=== PATIENT | female | born 1935 | race Caucasian/White ===

== ENCOUNTER 2018-09-04 20:56 | Emergency (ER) | payer MEDICARE, OTHER ==
--- NOTE | 2018-09-04 21:24 | EDM.PDOC ---
ED HPI GENERAL MEDICAL PROBLEM - General Chief Complaint: Gastrointestinal Problem Stated Complaint: VOMITING Time Seen by Provider: 09/04/18 21:24 - History of Present Illness INITIAL COMMENTS - FREE TEXT/NARRATIVE: 82-year-old female presents emergency room with nausea and vomiting. She has no associated pain with this no diarrhea. The nausea and vomiting started yesterday. She has not been able to keep anything down. She is starting to get week. She's not had any associated chest pain chest pressure breathing difficulties or shortness of breath. She has not had any burning or frequency with urination. - Related Data Allergies Allergy/AdvReac Type Severity Reaction Status Date / Time No Known Allergies Allergy Verified 04/25/17 12:34 Home Meds: Home Meds Alendronate Sodium [Fosamax] 70 mg PO MO 09/04/18 [History] Bimatoprost [LUMIGAN 0.01% Ophth Soln] 1 drop TOP BEDTIME 09/04/18 [History] Levothyroxine 125 mcg PO DAILY 09/04/18 [History] Losartan [Cozaar] 100 mg PO BEDTIME 09/04/18 [History] Montelukast [Singulair] 10 mg PO DAILY 09/04/18 [History] Multivitamin [Multivitamins] 1 cap PO DAILY 09/04/18 [History] Omeprazole 20 mg PO DAILY 09/04/18 [History] prednisoLONE Sod Phosphate [Prednisolone Sodium Phosphate] 1 drop TOP TID [History] Ondansetron [Zofran ODT] 4 mg PO Q6H PRN #10 tab.dis 09/05/18 [Rx] Potassium Chloride [Klor-Con 10] 10 meq PO Q8H #9 tab.er 09/05/18 [Rx] Past Medical History HEENT History: Reports: Glaucoma, Other (See Below) Other HEENT History: bilateral glaucoma surgery Cardiovascular History: Reports: Heart Failure, Hypertension Gastrointestinal History: Reports: Chronic Constipation, GERD, Hemorrhoids Genitourinary History: Reports: Renal Calculus Other Genitourinary History: lithotripsy Musculoskeletal History: Reports: Back Pain, Chronic - Past Surgical History GI Surgical History: Reports: Appendectomy, Cholecystectomy Female Surgical History: Reports: Hysterectomy, Lithotripsy/ESWL, Tubal Ligation Other Female Surgeries/Procedures: partial Musculoskeletal Surgical History: Reports: Knee Replacement Social & Family History - Tobacco Use Smoking Status *Q: Never Smoker - Caffeine Use Caffeine Use: Reports: Coffee - Recreational Drug Use Recreational Drug Use: No ED ROS GENERAL - Review of Systems Review Of Systems: See Below Constitutional: Reports: No Symptoms. Denies: Fever, Chills HEENT: Reports: No Symptoms Respiratory: Reports: No Symptoms Cardiovascular: Reports: No Symptoms GI/Abdominal: Reports: Decreased Appetite, Nausea, Vomiting. Denies: Abdominal Pain, Black Stool, Bloody Stool, Constipation, Diarrhea, Difficulty Swallowing, Distension, Hematemesis, Hematochezia, Melena, Mucous in Stool : Reports: No Symptoms Neurological: Reports: No Symptoms Psychiatric: Reports: No Symptoms ED EXAM, GI/ABD - Physical Exam Exam: See Below Exam Limited By: No Limitations General Appearance: Alert, No Apparent Distress Head: Atraumatic, Normocephalic Neck: Normal Inspection, Supple, Non-Tender, Full Range of Motion Respiratory/Chest: No Respiratory Distress, Lungs Clear, Normal Breath Sounds Cardiovascular: Regular Rate, Rhythm, No Edema, No Murmur GI/Abdominal Exam: Normal Bowel Sounds, Soft, Non-Tender. No: Guarding, Rigid, Rebound Back Exam: Normal Inspection, Full Range of Motion. No: CVA Tenderness (L), CVA Tenderness (R), Vertebral Tenderness Extremities: Normal Inspection. No: No Pedal Edema Neurological: Alert, Oriented, Normal Cognition EKG INTERPRETATION EKG Date: 09/04/18 Rhythm: NSR [place]: LAD-Left [place] Deviation P-Wave: Present QRS: Other (LVH) ST-T: Normal QT: Normal Comparison: NA - No Prior EKG EKG Interpretation Comments: LVH otherwise normal Course - Vital Signs Last Recorded V/S: Last Vital Signs Temp 37.2 C 09/04/18 21:10 Pulse 81 09/05/18 01:26 Resp 18 09/05/18 01:26 BP 157/80 H 09/05/18 01:26 Pulse Ox 97 09/05/18 01:26 - Orders/Labs/Meds Orders: Active Orders 24 hr Category Date Time Status EKG Documentation Completion [RC] STAT Care 09/04/18 22:01 Active Lactated Ringers [Ringers, Lactated] 1,000 ml Med 09/04/18 22:15 Active IV ASDIRECTED Medication Orders Lactated Ringer's (Ringers, Lactated) 1,000 mls @ 125 mls/hr IV ASDIRECTED REGINE Last Admin: 09/04/18 23:13 Dose: 125 mls/hr Labs: Laboratory Tests 09/04/18 09/04/18 09/04/18 Range/Units 22:25 22:25 23:35 WBC 7.16 (3.98-10.04) K/mm3 RBC 4.82 (3.98-5.22) M/mm3 Hgb 14.0 (11.2-15.7) gm/L Hct 41.8 (34.1-44.9) % MCV 86.7 (79.4-94.8) fl MCH 29.0 (25.6-32.2) pg MCHC 33.5 (32.2-35.5) g/dl RDW Std Deviation 49.1 H (36.4-46.3) fL Plt Count 311 (182-369) K/mm3 MPV 8.6 L (9.4-12.3) fl Neutrophils % (Manual) 75 H (40-60) % Band Neutrophils % 0 (0-10) % Lymphocytes % (Manual) 14 L (20-40) % Atypical Lymphs % 0 % Monocytes % (Manual) 11 H (2-10) % Eosinophils % (Manual) 0 L (0.7-5.8) % Basophils % (Manual) 0 L (0.1-1.2) Platelet Estimate Adequate Plt Morphology Comment Normal Anisocytosis 1+ slight Microcytosis 1+ slight Macrocytosis 1+ slight RBC Morph Comment Abnormal Sodium 140 (136-145) mEq/L Potassium 3.3 L (3.5-5.1) mEq/L Chloride 107 (98-107) mEq/L Carbon Dioxide 22 (21-32) mEq/L Anion Gap 14.3 (5-15) BUN 11 (7-18) mg/dL Creatinine 0.7 (0.55-1.02) mg/dL Est Cr Clr Drug Dosing TNP Estimated GFR (MDRD) > 60 (>60) mL/min BUN/Creatinine Ratio 15.7 (14-18) Glucose 128 H (83-115) mg/dL Calcium 9.2 (8.5-10.1) mg/dL Total Bilirubin 0.7 (0.2-1.0) mg/dL AST 14 L (15-37) U/L ALT 16 (14-59) U/L Alkaline Phosphatase 86 (46-116) U/L Troponin I < 0.017 (0.00-0.056) ng/mL Total Protein 6.8 (6.4-8.2) g/dl Albumin 3.1 L (3.4-5.0) g/dl Globulin 3.7 gm/dL Albumin/Globulin Ratio 0.8 L (1-2) Lipase 56 L (73-393) U/L Urine Color Yellow (Yellow) Urine Appearance Slt cloudy H (Clear) Urine pH 7.0 (5.0-8.0) Ur Specific [place] 1.015 (1.005-1.030) Urine Protein Negative (Negative) Urine Glucose (UA) Negative (Negative) Urine Ketones 2+ H (Negative) Urine Occult Blood Trace-lysed H (Negative) Urine Nitrite Negative (Negative) Urine Bilirubin Negative (Negative) Urine Urobilinogen 1.0 (0.2-1.0) Ur Leukocyte Esterase Negative (Negative) Urine RBC 0-5 (0-5) /hpf Urine WBC 0-5 (0-5) /hpf Ur Epithelial Cells 0-5 (0-5) /hpf Urine Bacteria Few (FEW) /hpf Hyaline Casts 0-5 (0-5) /lpf Urine Mucus Few (FEW) /hpf Meds: Medications Generic Name Dose Route Start Last Admin Trade Name Freq PRN Reason Stop Dose Admin Lactated Ringer's 1,000 mls @ 125 mls/hr 09/04/18 22:15 09/04/18 23:13 Ringers, Lactated IV 125 mls/hr ASDIRECTED REGINE Administration Discontinued Medications Generic Name Dose Route Start Last Admin Trade Name Freq PRN Reason Stop Dose Admin Lactated Ringer's 500 mls @ 999 mls/hr 09/04/18 22:01 09/04/18 23:12 Ringers, Lactated IV 09/04/18 22:31 Infused .BOLUS ONE Infusion Metoclopramide HCl 5 mg 09/05/18 00:42 09/05/18 00:50 Reglan IVPUSH 09/05/18 00:43 5 mg ONETIME ONE Administration Ondansetron HCl 4 mg 09/04/18 22:01 09/04/18 22:39 Zofran IVPUSH 09/04/18 22:02 4 mg ONETIME ONE Administration Ondansetron HCl 4 mg 09/04/18 23:22 09/04/18 23:43 Zofran IVPUSH 09/04/18 23:23 4 mg ONETIME ONE Administration - Re-Assessments/Exams Free Text/Narrative Re-Assessment/Exam: 09/05/18 01:34 Patient's labs were done she has mild hypokalemia troponin negative. Had some difficulty controlling her nausea she had 2 doses of Zofran followed by a dose of Reglan patient thinks she is ready to go home at this point we'll give her some supplemental potassium we will try oral Zofran because of the risks of continued use of Reglan. Departure - Departure Time of Disposition: 01:35 Disposition: Home, Self-Care 01 Clinical Impression: Gastroenteritis - Discharge Information Prescriptions: Ondansetron [Zofran ODT] 4 mg PO Q6H PRN #10 tab.dis PRN Reason: Nausea/Vomiting Potassium Chloride [Klor-Con 10] 10 meq PO Q8H #9 tab.er Referrals: Damien Roldan MD [Primary Care Provider] - Forms: ED Department Discharge Additional Instructions: Return to the emergency room with any questions problems worsening symptoms. Uses Zofran as needed for nausea and vomiting. Clear liquid diet for 24 hours then slowly advance as tolerated. Follow-up with your regular doctor on Friday if needed - My Orders Last 24 Hours: My Active Orders 09/04/18 22:01 EKG Documentation Completion [RC] STAT 09/04/18 22:15 Lactated Ringers [Ringers, Lactated] 1,000 ml IV ASDIRECTED - Assessment/Plan Last 24 Hours: My Active Orders 09/04/18 22:01 EKG Documentation Completion [RC] STAT 09/04/18 22:15 Lactated Ringers [Ringers, Lactated] 1,000 ml IV ASDIRECTED
[2018-09-04] MEDS ORDERED: Lactated Ringers 500 ML IV ONE (22:01)
[2018-09-04] MEDS ORDERED: Ondansetron 4 MG/2 ML SDV IVPUSH ONE ×2 (22:01→23:22)
[2018-09-04] MEDS ORDERED: Lactated Ringers 1,000 ML IV SCH (22:15)
[2018-09-05] MEDS ORDERED: Metoclopramide 10 MG/2 ML SDV IVPUSH ONE (00:42)
[2018-09-05] MEDS ORDERED: Ondansetron 4 MG Tab.DIS PO ONE (01:36)
== END 2018-09-05 01:55 | disposition home or self-care (01) ==
LOC: JD.ED 20:56
DX: K52.9 Noninfective gastroenteritis and colitis, unspecified (principal)
CPT/HCPCS: 36415; 80053; 81001; 83690; 84484; 85007; 85027; 93005; 96361; 96374; 96375; 96376; 99284; A9270; J2405; J2765; J7120; 93010

== ENCOUNTER 2020-08-18 10:37 | Emergency (ER) | payer MEDICARE, OTHER ==
[2020-08-18] MEDS ORDERED: Dextrose 5%-0.9% NaCl 1,000 ML IV SCH (12:00)
[2020-08-18] MEDS ORDERED: Acetaminophen 325 MG Tab PO STA (12:03)
--- NOTE | 2020-08-18 12:07 | EDM.PDOC ---
ED HPI GENERAL MEDICAL PROBLEM - General Chief Complaint: General Stated Complaint: DENYS AMBULANCE Time Seen by Provider: 08/18/20 11:58 Source of Information: Reports: Patient History Limitations: Reports: No Limitations - History of Present Illness INITIAL COMMENTS - FREE TEXT/NARRATIVE: 84-year-old female presents to the ED for evaluation of falls x2 within the last 12 hours. Both times she ended up on the floor in the bathroom. She states she fell gently the first time but the last time which was earlier this morning she fell quite hard but landed on her abdomen and did not feel that she hurt herself. At no time did she had her head or lose consciousness. She is complaining of no significant pain in her abdomen pelvis hips or knees. She states that she feels generally weak. She has lost her appetite over the last 2 to 3 days. She states that she has a productive cough which seems to be getting a little bit worse. Denies any genitourinary complaints. She is not aware of any chills but she is febrile on exam. She has no had no nausea or vomiting. Onset: Gradual Onset Date: 08/15/20 Duration: Day(s):, Getting Worse Location: Reports: Generalized (Analyzed weakness with falls x2 in the last 12 hours.) Quality: Reports: Other Severity: Moderate (Denies any pain at this time.) Improves with: Reports: None Worsens with: Reports: Other Context: Reports: Trauma (All at home x2 in the last 12 hours both times in the bathroom.). Denies: Activity, Exercise (She feels worse i.e. dizzy or lightheaded with standing up.), Lifting, Sick Contact Associated Symptoms: Reports: Loss of Appetite, Malaise, Shortness of Breath, Weakness. 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) (Timo her regular medicines.) Lower Back Pain Score (Numeric/FACES): 7 - Related Data Allergies Allergy/AdvReac Type Severity Reaction Status Date / Time No Known Allergies Allergy Verified 08/18/20 10:45 Home Meds: Home Meds Alendronate Sodium [Fosamax] 70 mg PO MO 09/04/18 [History] Bimatoprost [LUMIGAN 0.01% Ophth Soln] 1 drop TOP BEDTIME 09/04/18 [History] Levothyroxine 125 mcg PO DAILY 09/04/18 [History] Losartan [Cozaar] 100 mg PO BEDTIME 09/04/18 [History] Montelukast [Singulair] 10 mg PO DAILY 09/04/18 [History] Multivitamin [Multivitamins] 1 cap PO DAILY 09/04/18 [History] Omeprazole 20 mg PO DAILY 09/04/18 [History] prednisoLONE sodium phosphate [Prednisolone Sodium Phosphate] 1 drop TOP TID 09/04/18 [History] Ondansetron [Zofran ODT] 4 mg PO Q6H PRN #10 tab.dis 09/05/18 [Rx] Potassium Chloride [Klor-Con 10] 10 meq PO Q8H #9 tab.er 09/05/18 [Rx] Past Medical History HEENT History: Reports: Glaucoma, Other (See Below) Other HEENT History: bilateral glaucoma surgery Cardiovascular History: Reports: Heart Failure, Hypertension Gastrointestinal History: Reports: Chronic Constipation, GERD, Hemorrhoids Genitourinary History: Reports: Renal Calculus Other Genitourinary History: lithotripsy Musculoskeletal History: Reports: Back Pain, Chronic Endocrine/Metabolic History: Reports: Hypothyroidism, Osteopenia, Osteoporosis - Past Surgical History GI Surgical History: Reports: Appendectomy, Cholecystectomy Female Surgical History: Reports: Hysterectomy, Lithotripsy/ESWL, Tubal Ligation Other Female Surgeries/Procedures: partial Musculoskeletal Surgical History: Reports: Knee Replacement Social & Family History - Tobacco Use Smoking Status *Q: Never Smoker Second Hand Smoke Exposure: No - Caffeine Use Caffeine Use: Reports: Coffee - Recreational Drug Use Recreational Drug Use: No - Living Situation & Occupation Living situation: Reports: Occupation: Retired ED ROS GENERAL - Review of Systems Review Of Systems: See Below Constitutional: Reports: Fever, Malaise, Weakness, Fatigue, Decreased Appetite. Denies: Chills, Weight Loss HEENT: Reports: Glasses, Other (Has known glaucoma) Respiratory: Reports: Shortness of Breath, Cough, Sputum. Denies: Wheezing, Pleuritic Chest Pain, Hemoptysis (Yellowish sputum) Cardiovascular: Reports: Blood Pressure Problem, Dyspnea on Exertion (Always has a little edema in both lower extremities.), Edema, Lightheadedness. Denies: Chest Pain, Claudication, Orthopnea Endocrine: Reports: Fatigue GI/Abdominal: Reports: Constipation, Decreased Appetite. Denies: Abdominal Pain, Distension, Flatus, Hematemesis, Hematochezia, Melena, Nausea : Reports: Frequency (Both urge and stress components), Incontinence Musculoskeletal: Reports: Joint Pain (Knees hips back neck and shoulders at times) Skin: Reports: Other (He has psoriasis both elbows both knees and over the dorsal aspects of her feet. Also some on her sacrum.) Neurological: Reports: Dizziness, Difficulty Walking, Weakness, Other (All at home x2.). Denies: Confusion, Headache, Numbness, Syncope, Tingling, Tremors (Weakness), Trouble Speaking Psychiatric: Reports: No Symptoms Hematologic/Lymphatic: Reports: No Symptoms Immunologic: Reports: No Symptoms ED EXAM, GENERAL - Physical Exam Exam: See Below Exam Limited By: No Limitations General Appearance: Alert, WD/WN, No Apparent Distress, Other (He is alert oriented answers all questions quite appropriately. Temperature was 37.4 and she feels slightly warmer than this. Heart rate is 70 and sinus respiratory is 24 with O2 sats of 99% on room air BP 155/72.) Eye Exam: Bilateral Eye: Normal Inspection, PERRL Throat/Mouth: Other (Lips and tongue are very dry and coated.). No: Normal Teeth Head: Atraumatic, Normocephalic, Other Neck: Normal Inspection (No outward signs of any head or facial trauma), Limited Range of Motion. No: Carotid Bruit (Crepitus on lateral rotation with near full range of motion.), Lymphadenopathy (L), Lymphadenopathy (R) Respiratory/Chest: Normal Breath Sounds, Respiratory Distress, Decreased Breath Sounds (Kidney on exam decreased breath sounds to both lung bases.). No: Rales, Rhonchi, Wheezing Cardiovascular: Regular Rate, Rhythm, No Gallop, No JVD, No Murmur, No Rub. No: Normal Peripheral Pulses, No Edema Peripheral Pulses: 1+: Posterior Tibial (L), Posterior Tibial (R), Dorsalis Pe dis (L), Dorsalis Pedis (R), 2+: Carotid (L), Carotid (R) GI/Abdominal: Normal Bowel Sounds, Soft, Non-Tender, No Organomegaly, No Mass, Pelvis Stable, Other (She has a large scar right lower quadrant of the abdomen suggesting a combination cholecystectomy appendectomy.) Back Exam: Normal Inspection, Decreased Range of Motion, Other (Mild kyphosis thoracic spine. No overt signs of any thoracic or lumbar trauma on exam no abrasions or contusions.). No: CVA Tenderness (L), CVA Tenderness (R) Extremities: Pedal Edema (1+ pedal edema both lower extremities), Other Neurological: Alert (Stasis dermatitis mild both extremities. Psoriasis over the dorsal aspect of both feet worse on the right as compared to the left.), Oriented, CN II-XII Intact, Normal Cognition Psychiatric: Normal Affect, Normal Mood Skin Exam: Warm, Dry, Intact, Normal Color, Other (Rices elbows knees feet sacrum) EKG INTERPRETATION EKG Date: 08/18/20 Time: 12:04 Rhythm: NSR Rate (Beats/Min): 67 ([place] unifocal PVCs.) [place]: LAD-Left [place] Deviation (Mild left axis deviation of -6 degrees) P-Wave: Present QRS: Other (Early R wave transition suggesting right ventricular hypertrophy pattern versus septal hypertrophy.) ST-T: Normal QT: Prolonged (Mildly prolonged) EKG Interpretation Comments: Abnormal ECG Course - Vital Signs Last Recorded V/S: Last Vital Signs Temp 37.2 C 08/18/20 14:01 Pulse 78 08/18/20 10:45 Resp 24 H 08/18/20 10:45 BP 155/72 H 08/18/20 10:45 Pulse Ox 99 08/18/20 10:45 - Orders/Labs/Meds Orders: Active Orders 24 hr Category Date Time Status EKG Documentation Completion [RC] STAT Care 08/18/20 11:57 Active Orthostatic Vital Signs [RC] ASDIRECTED Care 08/18/20 11:59 Active CULTURE BLOOD [BC] Stat Lab 08/18/20 12:45 Received CULTURE BLOOD [BC] Stat Lab 08/18/20 13:50 Received Dextrose 5%-0.9% NaCl [Dextrose 5%-Normal Saline] 1,000 Med 08/18/20 12:00 Active ml IV ASDIRECTED Blood Culture x2 Reflex Set [OM.PC] Stat Oth 08/18/20 11:58 Ordered Medication Orders Dextrose/Sodium Chloride (Dextrose 5%-Normal Saline) 1,000 mls @ 150 mls/hr IV ASDIRECTED REGINE Last Admin: 08/18/20 14:02 Dose: 150 mls/hr Documented by: MARQUES Labs: Laboratory Tests 08/18/20 08/18/20 08/18/20 Range/Units 12:45 12:45 12:45 WBC 4.22 (3.98-10.04) K/mm3 RBC 4.91 (3.98-5.22) M/mm3 Hgb 14.2 (11.2-15.7) gm/dl Hct 44.9 (34.1-44.9) % MCV 91.4 D (79.4-94.8) fl MCH 28.9 (25.6-32.2) pg MCHC 31.6 L (32.2-35.5) g/dl RDW Std Deviation 48.8 H (36.4-46.3) fL Plt Count 238 (182-369) K/mm3 MPV 9.2 L (9.4-12.3) fl Neut % (Auto) 54.6 (34.0-71.1) % Lymph % (Auto) 24.4 (19.3-51.7) % [place] % (Auto) 20.1 H (4.7-12.5) % Eos % (Auto) 0.2 L (0.7-5.8) Baso % (Auto) 0.5 (0.1-1.2) % Neut # (Auto) 2.30 (1.56-6.13) K/mm3 Lymph # (Auto) 1.03 L (1.18-3.74) K/mm3 [place] # (Auto) 0.85 H (0.24-0.36) K/mm3 Eos # (Auto) 0.01 L (0.04-0.36) K/mm3 Baso # (Auto) 0.02 (0.01-0.08) K/mm3 Manual Slide Review Normal smear ESR (0-20) mm/hr PT 11.5 (9.7-11.7) SECONDS INR 1.08 APTT 29 (22-31) SECONDS Sodium 141 (136-145) mEq/L Potassium 4.0 (3.5-5.1) mEq/L Chloride 102 (98-107) mEq/L Carbon Dioxide 31 (21-32) mEq/L Anion Gap 12.0 (5-15) BUN 16 (7-18) mg/dL Creatinine 0.9 (0.55-1.02) mg/dL Est Cr Clr Drug Dosing 40.18 mL/min Estimated GFR (MDRD) 60 (>60) mL/min BUN/Creatinine Ratio 17.8 (14-18) Glucose 108 (83-115) mg/dL Calcium 9.2 (8.5-10.1) mg/dL Magnesium 2.1 (1.8-2.4) mg/dl Total Bilirubin 0.5 (0.2-1.0) mg/dL AST 24 (15-37) U/L ALT 28 (14-59) U/L Alkaline Phosphatase 81 (46-116) U/L CK-MB (CK-2) 0.8 (0-3.6) ng/ml Troponin I 0.029 (0.00-0.056) ng/mL C-Reactive Protein 3.3 H* (<1.0) mg/dL NT-Pro-B Natriuret Pep (0-450) pg/mL Total Protein 7.2 (6.4-8.2) g/dl Albumin 3.3 L (3.4-5.0) g/dl Globulin 3.9 gm/dL Albumin/Globulin Ratio 0.9 L (1-2) Urine Color (Yellow) Urine Appearance (Clear) Urine pH (5.0-8.0) Ur Specific [place] (1.005-1.030) Urine Protein (Negative) Urine Glucose (UA) (Negative) Urine Ketones (Negative) Urine Occult Blood (Negative) Urine Nitrite (Negative) Urine Bilirubin (Negative) Urine Urobilinogen (0.2-1.0) Ur Leukocyte Esterase (Negative) Urine RBC (0-5) /hpf Urine WBC (0-5) /hpf Ur Squamous Epith Cells (0-5) /hpf Urine Bacteria (FEW) /hpf Urine Mucus (FEW) /hpf 08/18/20 08/18/20 08/18/20 Range/Units 12:45 13:50 16:00 WBC (3.98-10.04) K/mm3 RBC (3.98-5.22) M/mm3 Hgb (11.2-15.7) gm/dl Hct (34.1-44.9) % MCV (79.4-94.8) fl MCH (25.6-32.2) pg MCHC (32.2-35.5) g/dl RDW Std Deviation (36.4-46.3) fL Plt Count (182-369) K/mm3 MPV (9.4-12.3) fl Neut % (Auto) (34.0-71.1) % Lymph % (Auto) (19.3-51.7) % [place] % (Auto) (4.7-12.5) % Eos % (Auto) (0.7-5.8) Baso % (Auto) (0.1-1.2) % Neut # (Auto) (1.56-6.13) K/mm3 Lymph # (Auto) (1.18-3.74) K/mm3 [place] # (Auto) (0.24-0.36) K/mm3 Eos # (Auto) (0.04-0.36) K/mm3 Baso # (Auto) (0.01-0.08) K/mm3 Manual Slide Review ESR 21 H (0-20) mm/hr PT (9.7-11.7) SECONDS INR APTT (22-31) SECONDS Sodium (136-145) mEq/L Potassium (3.5-5.1) mEq/L Chloride (98-107) mEq/L Carbon Dioxide (21-32) mEq/L Anion Gap (5-15) BUN (7-18) mg/dL Creatinine (0.55-1.02) mg/dL Est Cr Clr Drug Dosing mL/min Estimated GFR (MDRD) (>60) mL/min BUN/Creatinine Ratio (14-18) Glucose (83-115) mg/dL Calcium (8.5-10.1) mg/dL Magnesium (1.8-2.4) mg/dl Total Bilirubin (0.2-1.0) mg/dL AST (15-37) U/L ALT (14-59) U/L Alkaline Phosphatase (46-116) U/L CK-MB (CK-2) (0-3.6) ng/ml Troponin I (0.00-0.056) ng/mL C-Reactive Protein (<1.0) mg/dL NT-Pro-B Natriuret Pep 548 H (0-450) pg/mL Total Protein (6.4-8.2) g/dl Albumin (3.4-5.0) g/dl Globulin gm/dL Albumin/Globulin Ratio (1-2) Urine Color Yellow (Yellow) Urine Appearance Slt cloudy H (Clear) Urine pH 6.5 (5.0-8.0) Ur Specific [place] 1.025 (1.005-1.030) Urine Protein Trace H (Negative) Urine Glucose (UA) Negative (Negative) Urine Ketones Trace H (Negative) Urine Occult Blood Negative (Negative) Urine Nitrite Negative (Negative) Urine Bilirubin Negative (Negative) Urine Urobilinogen 2.0 H (0.2-1.0) Ur Leukocyte Esterase Negative (Negative) Urine RBC 0-5 (0-5) /hpf Urine WBC 0-5 (0-5) /hpf Ur Squamous Epith Cells 5-10 H (0-5) /hpf Urine Bacteria Few (FEW) /hpf Urine Mucus Moderate H (FEW) /hpf Meds: Medications Generic Name Dose Route Start Last Admin Trade Name Freq PRN Reason Stop Dose Admin Dextrose/Sodium Chloride 1,000 mls @ 150 mls/hr 08/18/20 12:00 08/18/20 14:02 Dextrose 5%-Normal Saline IV 150 mls/hr ASDIRECTED REGINE Administration Discontinued Medications Generic Name Dose Route Start Last Admin Trade Name Freq PRN Reason Stop Dose Admin Acetaminophen 650 mg 08/18/20 12:03 08/18/20 14:01 Tylenol PO 08/18/20 12:04 650 mg NOW STA Administration - Radiology Interpretation Free Text/Narrative:: 84-year-old female presents to the ED due to fall x2 in the last 12 hours in her bathroom at home. First time she went down to the floor gently fell more aggressively this morning onto her abdomen without any apparent injuries. On examination she has a low-grade fever. She reports coughing for the last 3 days and bringing up some yellow sputum no blood. She denies any genitourinary complaints. She has had decreased appetite and decreased fluid intake the last 2 to 3 days as well which likely contributed to orthostasis and fall. No apparent injuries are evident from the fall. Plan septic work-up will be carried out. COVID-19 screen will not be carried out since her O2 sats are 99% on room air. - Re-Assessments/Exams Free Text/Narrative Re-Assessment/Exam: 08/18/20 13:21 Lab reports due to collapsing veins they were only able to obtain obtain of blood for 1 blood culture and they could not obtain enough blood for a lactic acid or sed rate. They indicate that her veins seem to blow up easily. 08/18/20 13:59 Chemistry is back showing a sodium of 141 potassium 4.0. Chloride 102 with a bicarb of 31. Anion gap is 12.0. BUN is 16 with a creatinine of 0.9. Estimated GFR is 60. BUN creatinine ratio is 17.8 with a glucose of 108. Calcium is 9.2 magnesium is 2.1. Liver function is normal CK- MB fraction 0.8 troponin I is 0.029 C-reactive protein slightly elevated at 3.3 BNP mildly elevated at 548. Total protein is 7.2 with an albumin fraction of 3.3. Next x-ray has not yet been done. 08/18/20 14:09 White count is 4.22 with 55% neutrophils on the auto differential. Hemoglobin is 14.2 with hematocrit of 44.9. MCV is 91.4. Platelet count 238,000. Audible chest x-ray reveals heart size and mediastinum to be within normal limits for portable technique. Lungs show no acute parenchymal changes. Bony structures are grossly intact. 08/18/20 15:06 Awaiting a urinalysis and the patient has not yet provided 1. Apparently the nurse has catheterized urine sent the sample over without a value recorded yet. Sed rate was 21. 08/18/20 16:23 Urinalysis is slightly cloudy in appearance. Trace of proteinuria trace of ketones and 2.0 urobilinogen. Leukocyte esterase is negative and there are no pus cells or red cells in the urine. 08/18/20 16:28 patient is no longer febrile and she denies any significant cough. Sats are 94 to 95% on room air. Discharged to home. She has a walker to aid her balance and gait at all times. She will see how things go over the weekend and follow-up on Friday if needed. To have a viral upper respiratory tract infection. COVID screening was not carried out today as she had sats of 99% on initial evaluation. Departure - Departure Time of Disposition: 16:28 Disposition: Home, Self-Care 01 Condition: Fair Clinical Impression: Generalized weakness, Viral syndrome, Fall as cause of accidental injury at home as place of occurrence - Discharge Information *PRESCRIPTION DRUG MONITORING PROGRAM REVIEWED*: Not Applicable *COPY OF PRESCRIPTION DRUG MONITORING REPORT IN PATIENT NEHA: Not Applicable Referrals: Damien Roldan MD [Primary Care Provider] - Forms: ED Department Discharge Additional Instructions: Evaluation in the emergency room today in regards to generalized weakness causing her to fall or your legs give out on you over the last day or so. Associated with an upper respiratory tract infection with cough which appears to be viral in etiology. Chest x-ray is negative for pneumonia lab tests were all negative for any signs of related illness. Urinalysis which took forever to come back is negative for infection as well. I would suggest taking Tylenol 650 mg every 6 hours if needed for fever relief over the weekend and see how things go. If still feeling tough or getting worse in the next 48 hours then you should be returned to the ED or follow-up with your personal care physician on Friday. Diet as tolerated. Continue all current medications as previously prescribed Sepsis Event Note (ED) - Evaluation Sepsis Screening Result: Possible Sepsis Risk - Focused Exam Vital Signs: Vital Signs Temp Temp Pulse Resp BP Pulse Ox 08/18/20 14:01 37.2 C 08/18/20 10:45 37.4 C 78 24 H 155/72 H 99 - My Orders Last 24 Hours: My Active Orders 08/18/20 11:57 EKG Documentation Completion [RC] STAT 08/18/20 11:58 Blood Culture x2 Reflex Set [OM.PC] Stat 08/18/20 11:59 Orthostatic Vital Signs [RC] ASDIRECTED 08/18/20 12:00 Dextrose 5%-0.9% NaCl [Dextrose 5%-Normal Saline] 1,000 ml IV ASDIRECTED 08/18/20 12:45 CULTURE BLOOD [BC] Stat 08/18/20 13:50 CULTURE BLOOD [BC] Stat - Assessment/Plan Last 24 Hours: My Active Orders 08/18/20 11:57 EKG Documentation Completion [RC] STAT 08/18/20 11:58 Blood Culture x2 Reflex Set [OM.PC] Stat 08/18/20 11:59 Orthostatic Vital Signs [RC] ASDIRECTED 08/18/20 12:00 Dextrose 5%-0.9% NaCl [Dextrose 5%-Normal Saline] 1,000 ml IV ASDIRECTED 08/18/20 12:45 CULTURE BLOOD [BC] Stat 08/18/20 13:50 CULTURE BLOOD [BC] Stat
--- NOTE | 2020-08-18 14:45 | PCM.SN.2 ---
- Free Text/Narrative Note: Called to ER to start IV. Per ER staff patient is presumptive CV19 positive and is thus on contact precautions. Donned contact gear to include N95, face mask, gown and gloves. Utilized US linear probe with assistance from manager laboratory as staff scientist was unavailable. Sgb-[id number] attempt at right distal basilic vein without success despite what appeared to be clean cannulation under ultrasound. Moved to right proximal cephalic vein which was sitting on top of artery. Easy cannulation. Obtained blood sample for cultures and other labs per lab request. Taped secure in usual fashion with Tegaderm and tape. IV flushes and draws easily. would not be surprised if this patient needs either Midline or PICC for anything longer than a couple of days as the longest 20g IV catheter I could find was 1.88 inches. Routine insertion. Requested ER staff to wipe down ultrasound machine as I had to get back to OR case.
--- NOTE | 2020-08-18 15:01 | CR ---
Chest: Portable view of the chest was obtained. Comparison: No prior chest imaging is available. Heart size and mediastinum are within normal limits for portable technique. Lungs show no acute parenchymal change. Bony structures are grossly intact. Impression: 1. Nothing acute is appreciated on portable chest x-ray. Diagnostic code #1 This report was dictated in MDT
== END 2020-08-18 16:45 | disposition home or self-care (01) ==
LOC: JD.ED 10:37 → SUPCPDRO 10:37 → JD.ED 16:45
DX: R53.1 Weakness (principal); B34.9 Viral infection, unspecified; I11.0 Hypertensive heart disease with heart failure; I50.9 Heart failure, unspecified; K21.9 Gastro-esophageal reflux disease without esophagitis; Z79.899 Other long term (current) drug therapy; E03.9 Hypothyroidism, unspecified; R60.0 Localized edema
CPT/HCPCS: 36415; 71045; 80053; 81001; 82553; 83735; 83880; 84484; 85025; 85610; 85652; 85730; 86140; 87040; 93005; 96360; 96361; 99285; A9270; J7042; 36410; 93010; 99283

== ENCOUNTER 2020-09-01 12:08 | Emergency (ER) | payer MEDICARE, OTHER ==
--- NOTE | 2020-09-01 12:33 | EDM.PDOC ---
ED HPI GENERAL MEDICAL PROBLEM - General Chief Complaint: Respiratory Problem Stated Complaint: DENYS AMBULANCE Time Seen by Provider: 09/01/20 12:33 Source of Information: Reports: Patient History Limitations: Reports: No Limitations - History of Present Illness INITIAL COMMENTS - FREE TEXT/NARRATIVE: 84-year-old female attends the ED with chief complaint of generalized myalgia, fatigue and weakness. She has mild diarrhea for the last 3 days. She states symptoms developed approximately 7 days ago. She has a mild nonproductive cough. Does feel short of breath on exertion. She reports her was diagnosed with COVID-19 positivity 3 days ago and transferred to [facility] in [place] for care. Apparently he is doing fairly well. She denies fever or chills. Uncertain how she or her contracted this illness. Onset: Gradual Onset Date: 08/26/20 Duration: Day(s):, Getting Worse Location: Reports: Generalized (Generalized weakness, fatigue with shortness of breath on exertion. No notable fever. No chills decreased appetite with mild diarrhea 2-3 times daily.), Other (Decreased appetite.) Quality: Reports: Ache Severity: Moderate (Generalized myalgia.) Improves with: Reports: Rest, Other (Tylenol helps a bit.) Worsens with: Reports: Movement (Agnes place her out easily.) Context: Reports: Sick Contact ( was diagnosed with COVID-19 positivity 2 days ago and transferred to [facility] in [place].). Denies: Activity, Exercise, Lifting, Trauma Associated Symptoms: Reports: Cough, Loss of Appetite, Malaise (Occasional nonproductive cough.), Shortness of Breath, Weakness, Other (Mild diarrhea 2-3 times daily yellow stool.). Denies: cough w sputum, Diaphoresis, Fever/Chills, Headaches, Nausea/Vomiting, Rash, Seizure, Syncope Treatments [employer]: Reports: Acetaminophen - Related Data Allergies Allergy/AdvReac Type Severity Reaction Status Date / Time No Known Allergies Allergy Verified 09/01/20 12:20 Home Meds: Home Meds Alendronate Sodium [Fosamax] 70 mg PO MO 09/04/18 [History] Bimatoprost [LUMIGAN 0.01% Ophth Soln] 1 drop TOP BEDTIME 09/04/18 [History] Levothyroxine 125 mcg PO DAILY 09/04/18 [History] Losartan [Cozaar] 100 mg PO BEDTIME 09/04/18 [History] Montelukast [Singulair] 10 mg PO DAILY 09/04/18 [History] Multivitamin [Multivitamins] 1 cap PO DAILY 09/04/18 [History] Omeprazole 20 mg PO DAILY 09/04/18 [History] Ondansetron [Zofran ODT] 4 mg PO Q6H PRN #10 tab.dis 09/05/18 [Rx] Furosemide [Lasix] 20 mg PO DAILY #12 tab 09/01/20 [Rx] dexAMETHasone [Dexamethasone] 4 mg PO BID #10 tab 09/01/20 [Rx] Past Medical History HEENT History: Reports: Glaucoma, Other (See Below) Other HEENT History: bilateral glaucoma surgery Cardiovascular History: Reports: Heart Failure, Hypertension Gastrointestinal History: Reports: Chronic Constipation, GERD, Hemorrhoids Genitourinary History: Reports: Renal Calculus Other Genitourinary History: lithotripsy Musculoskeletal History: Reports: Back Pain, Chronic Endocrine/Metabolic History: Reports: Hypothyroidism, Osteopenia, Osteoporosis - Past Surgical History GI Surgical History: Reports: Appendectomy, Cholecystectomy Female Surgical History: Reports: Hysterectomy, Lithotripsy/ESWL, Tubal Ligation Other Female Surgeries/Procedures: partial Musculoskeletal Surgical History: Reports: Knee Replacement Social & Family History - Tobacco Use Smoking Status *Q: Never Smoker - Caffeine Use Caffeine Use: Reports: Coffee - Recreational Drug Use Recreational Drug Use: No - Living Situation & Occupation Living situation: Reports: Occupation: Retired ED ROS GENERAL - Review of Systems Review Of Systems: See Below Constitutional: Reports: Malaise, Weakness, Fatigue, Decreased Appetite, Weight Loss. Denies: Fever, Chills HEENT: Reports: Glasses Respiratory: Reports: Shortness of Breath, Cough. Denies: Wheezing, Pleuritic Chest Pain, Sputum, Hemoptysis Cardiovascular: Reports: Blood Pressure Problem, Dyspnea on Exertion (Patient has a bit of edema in her lower extremities around her ankles.), Edema, Lightheadedness. Denies: Chest Pain (Nonproductive), Claudication, Orthopnea (She is on antihypertensive medication), Palpitations Endocrine: Reports: Fatigue (Severe.) GI/Abdominal: Reports: Diarrhea (Occasional yellow diarrhea 2-3 times daily.), Decreased Appetite. Denies: Distension, Flatus, Hematemesis, Hematochezia, Melena, Mucous in Stool : Reports: Frequency, Urgency, Other (She states her urinary frequency and urgency is no worse than normal. Urine is perhaps darker in color.). Denies: Dysuria Musculoskeletal: Reports: Neck Pain, Back Pain ( knees hips.), Joint Pain (Olga Axel) Skin: Reports: No Symptoms Neurological: Reports: Dizziness, Difficulty Walking, Weakness (No dizziness with walking. Generalized). Denies: Confusion, Headache, Numbness, Syncope, Tingling Hematologic/Lymphatic: Reports: No Symptoms Immunologic: Reports: No Symptoms ED EXAM, GENERAL - Physical Exam Exam: See Below Exam Limited By: No Limitations General Appearance: Alert, WD/WN, Mild Distress, Other (Temperature is reportedly 36.4 and she does not feel warm to palpation. Heart rate is 72 and sinus on the monitor. Respiratory to 16 with O2 sats of 95% on room air BP slightly elevated 165/90 and a came down to 145/86 over time.) Eye Exam: Bilateral Eye: Normal Inspection, PERRL Throat/Mouth: Normal Lips, Normal Oropharynx, Other (Tongue is mildly dry and coated.). No: Normal Teeth Head: Atraumatic, Normocephalic Neck: Normal Inspection, Supple, Non-Tender, Full Range of Motion. No: Carotid Bruit, Lymphadenopathy (L), Lymphadenopathy (R) Respiratory/Chest: No Respiratory Distress, Lungs Clear, Normal Breath Sounds, No Accessory Muscle Use Cardiovascular: Normal Peripheral Pulses, Regular Rate, Rhythm, No Edema, No Gallop, No Murmur, No Rub Peripheral Pulses: 2+: Carotid (L), Carotid (R), Posterior Tibial (L), Posterior Tibial (R), Dorsalis Pedis (L), Dorsalis Pedis (R) GI/Abdominal: Normal Bowel Sounds, Soft, Non-Tender, No Organomegaly, No Abno rmal Bruit, No Mass, Pelvis Stable. No: Guarding, Rigid, Rebound, Tender Back Exam: Decreased Range of Motion ( Limited range of motion lumbar spine.), Other (Mild kyphosis thoracic spine.). No: Full Range of Motion, CVA Tenderness (L) ( Lumbar spine), CVA Tenderness (R) Extremities: Normal Inspection, Non-Tender, Pedal Edema, Other (She has evidence of osteoarthritic changes both knees with very limited internal/external rotation of either hip. She has mild dependent edema around her ankles.) Neurological: Alert, Oriented, CN II-XII Intact, Normal Cognition Psychiatric: Normal Affect, Normal Mood Skin Exam: Warm, Dry, Intact, Normal Color, Pallor EKG INTERPRETATION EKG Date: 09/01/20 Time: 13:18 Rhythm: NSR Rate (Beats/Min): 65 Bradford: LAD-Left Bradford Deviation (Minimal left axis deviation at -7 degrees) P-Wave: Enlarged (Consider biatrial hypertrophy.) QRS: Other (There is early R wave transition consider right ventricular appear to be versus septal hypertrophy pattern. Tall R waves in lead I left ventricular appear to be pattern.) ST-T: Other (Diffuse early repolarization pattern.) QT: Normal EKG Interpretation Comments: Abnormal ECG Course - Vital Signs Last Recorded V/S: Last Vital Signs Temp 36.4 C 09/01/20 12:17 Pulse 72 09/01/20 12:17 Resp 16 09/01/20 12:17 BP 165/90 H 09/01/20 12:17 Pulse Ox 95 09/01/20 12:17 - Orders/Labs/Meds Orders: Active Orders 24 hr Category Date Time Status Chest 1V Frontal [CR] Stat Exams 09/01/20 12:34 Taken Labs: Laboratory Tests 09/01/20 09/01/20 09/01/20 Range/Units 12:46 13:37 13:38 WBC 5.74 (3.98-10.04) K/mm3 RBC 4.83 (3.98-5.22) M/mm3 Hgb 13.8 (11.2-15.7) gm/dl Hct 43.2 (34.1-44.9) % MCV 89.4 (79.4-94.8) fl MCH 28.6 (25.6-32.2) pg MCHC 31.9 L (32.2-35.5) g/dl RDW Std Deviation 48.1 H (36.4-46.3) fL Plt Count 414 H D (182-369) K/mm3 MPV 8.7 L (9.4-12.3) fl Neut % (Auto) 55.6 (34.0-71.1) % Lymph % (Auto) 25.6 (19.3-51.7) % Barbour % (Auto) 13.6 H (4.7-12.5) % Eos % (Auto) 4.0 (0.7-5.8) Baso % (Auto) 0.5 (0.1-1.2) % Neut # (Auto) 3.19 (1.56-6.13) K/mm3 Lymph # (Auto) 1.47 (1.18-3.74) K/mm3 Barbour # (Auto) 0.78 H (0.24-0.36) K/mm3 Eos # (Auto) 0.23 (0.04-0.36) K/mm3 Baso # (Auto) 0.03 (0.01-0.08) K/mm3 PT (9.7-11.7) SECONDS INR APTT (22-31) SECONDS D-Dimer, Quantitative (0.19-0.50) mg/L Magnesium (1.8-2.4) mg/dl Ferritin (8-252) ng/ml Lactate Dehydrogenase (81-234) U/L Troponin I (0.00-0.056) ng/mL C-Reactive Protein (<1.0) mg/dL NT-Pro-B Natriuret Pep (0-450) pg/mL Urine Color Yellow (Yellow) Urine Appearance Clear (Clear) Urine pH 7.0 (5.0-8.0) Ur Specific [place] 1.020 (1.005-1.030) Urine Protein Negative (Negative) Urine Glucose (UA) Negative (Negative) Urine Ketones Negative (Negative) Urine Occult Blood Trace-intact H (Negative) Urine Nitrite Negative (Negative) Urine Bilirubin Negative (Negative) Urine Urobilinogen 2.0 H (0.2-1.0) Ur Leukocyte Esterase Trace H (Negative) Urine RBC 5-10 H (0-5) /hpf Urine WBC 5-10 H (0-5) /hpf Ur Squamous Epith Cells 10-20 H (0-5) /hpf Amorphous Sediment Few H (NOT SEEN) /hpf Urine Bacteria Few (FEW) /hpf Urine Mucus Not seen (FEW) /hpf SARS-CoV-2 RNA (ALBER) Positive H (NEGATIVE) 09/01/20 09/01/20 09/01/20 Range/Units 13:38 13:38 13:38 WBC (3.98-10.04) K/mm3 RBC (3.98-5.22) M/mm3 Hgb (11.2-15.7) gm/dl Hct (34.1-44.9) % MCV (79.4-94.8) fl MCH (25.6-32.2) pg MCHC (32.2-35.5) g/dl RDW Std Deviation (36.4-46.3) fL Plt Count (182-369) K/mm3 MPV (9.4-12.3) fl Neut % (Auto) (34.0-71.1) % Lymph % (Auto) (19.3-51.7) % Barbour % (Auto) (4.7-12.5) % Eos % (Auto) (0.7-5.8) Baso % (Auto) (0.1-1.2) % Neut # (Auto) (1.56-6.13) K/mm3 Lymph # (Auto) (1.18-3.74) K/mm3 Barbour # (Auto) (0.24-0.36) K/mm3 Eos # (Auto) (0.04-0.36) K/mm3 Baso # (Auto) (0.01-0.08) K/mm3 PT 11.9 H (9.7-11.7) SECONDS INR 1.11 APTT 27 (22-31) SECONDS D-Dimer, Quantitative 2.08 H (0.19-0.50) mg/L Magnesium 1.9 (1.8-2.4) mg/dl Ferritin 194 (8-252) ng/ml Lactate Dehydrogenase 217 (81-234) U/L Troponin I < 0.017 (0.00-0.056) ng/mL C-Reactive Protein 1.6 H* (<1.0) mg/dL NT-Pro-B Natriuret Pep (0-450) pg/mL Urine Color (Yellow) Urine Appearance (Clear) Urine pH (5.0-8.0) Ur Specific [place] (1.005-1.030) Urine Protein (Negative) Urine Glucose (UA) (Negative) Urine Ketones (Negative) Urine Occult Blood (Negative) Urine Nitrite (Negative) Urine Bilirubin (Negative) Urine Urobilinogen (0.2-1.0) Ur Leukocyte Esterase (Negative) Urine RBC (0-5) /hpf Urine WBC (0-5) /hpf Ur Squamous Epith Cells (0-5) /hpf Amorphous Sediment (NOT SEEN) /hpf Urine Bacteria (FEW) /hpf Urine Mucus (FEW) /hpf SARS-CoV-2 RNA (ALBER) (NEGATIVE) 09/01/20 Range/Units 13:50 WBC (3.98-10.04) K/mm3 RBC (3.98-5.22) M/mm3 Hgb (11.2-15.7) gm/dl Hct (34.1-44.9) % MCV (79.4-94.8) fl MCH (25.6-32.2) pg MCHC (32.2-35.5) g/dl RDW Std Deviation (36.4-46.3) fL Plt Count (182-369) K/mm3 MPV (9.4-12.3) fl Neut % (Auto) (34.0-71.1) % Lymph % (Auto) (19.3-51.7) % Barbour % (Auto) (4.7-12.5) % Eos % (Auto) (0.7-5.8) Baso % (Auto) (0.1-1.2) % Neut # (Auto) (1.56-6.13) K/mm3 Lymph # (Auto) (1.18-3.74) K/mm3 Barbour # (Auto) (0.24-0.36) K/mm3 Eos # (Auto) (0.04-0.36) K/mm3 Baso # (Auto) (0.01-0.08) K/mm3 PT (9.7-11.7) SECONDS INR APTT (22-31) SECONDS D-Dimer, Quantitative (0.19-0.50) mg/L Magnesium (1.8-2.4) mg/dl Ferritin (8-252) ng/ml Lactate Dehydrogenase (81-234) U/L Troponin I (0.00-0.056) ng/mL C-Reactive Protein (<1.0) mg/dL NT-Pro-B Natriuret Pep 664 H (0-450) pg/mL Urine Color (Yellow) Urine Appearance (Clear) Urine pH (5.0-8.0) Ur Specific [place] (1.005-1.030) Urine Protein (Negative) Urine Glucose (UA) (Negative) Urine Ketones (Negative) Urine Occult Blood (Negative) Urine Nitrite (Negative) Urine Bilirubin (Negative) Urine Urobilinogen (0.2-1.0) Ur Leukocyte Esterase (Negative) Urine RBC (0-5) /hpf Urine WBC (0-5) /hpf Ur Squamous Epith Cells (0-5) /hpf Amorphous Sediment (NOT SEEN) /hpf Urine Bacteria (FEW) /hpf Urine Mucus (FEW) /hpf SARS-CoV-2 RNA (ALBER) (NEGATIVE) Meds: Medications Discontinued Medications Generic Name Dose Route Start Last Admin Trade Name Freq PRN Reason Stop Dose Admin Dexamethasone 6 mg 09/01/20 15:46 09/01/20 16:05 Dexamethasone IVPUSH 09/01/20 15:47 6 mg ONETIME ONE Administration Furosemide 40 mg 09/01/20 15:46 09/01/20 16:06 Lasix PO 09/01/20 15:47 40 mg ONETIME ONE Administration Ondansetron HCl 4 mg 09/01/20 13:07 09/01/20 13:31 Zofran Odt PO 09/01/20 13:08 Not Given ONETIME ONE Ondansetron HCl 4 mg 09/01/20 13:30 09/01/20 13:39 Zofran IVPUSH 09/01/20 13:31 4 mg ONETIME ONE Administration - Radiology Interpretation Free Text/Narrative:: 84-year-old female attends the ED this morning with concerns that she might have COVID-19 illness. She feels generally weak with fatigue and mild shortness of breath for the last week. No notable fever or chills. She reports decreased appetite and occasional yellow diarrhea stool 2-3 3 times daily at most. Decrease in appetite. Her was diagnosed with COVID-19 illness 3 days ago and has been transferred to [facility] in [place] for definitive care. Apparently he is responding well to treatment. Patient has mild hypoxemia at rest 95/min O2 sats. She has no fever at this point time. Lungs reveal some coarse crackles both bases. Plan chest x-ray COVID-19 labs and COVID-19 screen. - Re-Assessments/Exams Free Text/Narrative Re-Assessment/Exam: 09/01/20 13:08 Chest x-ray reveals moderate cardiomegaly with slightly tortuous thoracic aorta. Lungs show mild diffuse vascular congestion pattern without pleural effusion. Hyperinflated. Atelectatic changes noted within the lung bases without any signs of pneumonia. No evidence of pneumonia. 09/01/20 14:51 White blood cell count is 5.74 with 55.6% neutrophils on the auto differential. Hemoglobin is 13.8 with hematocrit of 43.2. Platelet count is elevated at 414,000. PT is 11.9 with an INR of 1.11. PTT is 27 d-dimer is elevated at 2.08. Magnesium is 1.9 with a ferritin level normal at 194 LDH is normal at 217. Troponin I less than 0.017. C-reactive protein minimally elevated at 1.6. BNP elevated at 664. 09/01/20 15:30: COVID-19 test is positive. COVID-19 test is positive. Dimer came back mildly elevated at 2.08. His oxygen saturations are satisfactory at 97 to 100% on room air at rest. Therefore she will not have a CT pulmonary angiogram. Elevated d-dimer is felt to be due to the COVID-19 positive blood test. Will be placed on Lasix 20 mg once daily every morning for the next 12 days as she does have an elevated BNP at 664. She will also be placed on dexamethasone 4 mg twice daily for 5 days as a higher dose would aggravate her congestive heart failure. She will return if she is not improving over the next 3 to 4 days. The assessment is likely that she has had COVID illness for about 7 days. Departure - Departure Time of Disposition: 15:42 Disposition: Home, Self-Care 01 Condition: Fair Clinical Impression: COVID-19 determined by clinical diagnostic criteria, Mild congestive heart failure, Generalized weakness - Discharge Information *PRESCRIPTION DRUG MONITORING PROGRAM REVIEWED*: Not Applicable *COPY OF PRESCRIPTION DRUG MONITORING REPORT IN PATIENT NEHA: Not Applicable Prescriptions: dexAMETHasone [Dexamethasone] 4 mg PO BID #10 tab Furosemide [Lasix] 20 mg PO DAILY #12 tab Instructions: COVID-19 Frequently Asked Questions, Fatigue, COVID-19: How to Protect Yourself and Others - CDC, Preventing Heart Failure, Heart Failure Eating Plan Referrals: Damien Roldan MD [Primary Care Provider] - Forms: ED Department Discharge Additional Instructions: Ealuation in the emergency room today in regards to fatigue and generalized weakness with loss of appetite over the last week. Your reportedly was diagnosed with COVID-19 illness 3 days ago and was transported to [facility] in [place] for treatment. When seen in the emergency room today no fever was identified. Your oxygen saturations on room air are 95 to 96% but will go down with walking making you more short of breath on exertion. Your COVID-19 screen did come back positive. We also identified that you have a little bit of extra fluid accumulating your lungs due to heart muscle weakness which is caused by the COVID-19 virus as well. You will need medicine called Lasix 20 mg every morning which is a water medication to help prevent further retention of fluid in your lungs causing more shortness of breath. You also need steroid dexamethasone 4 mg tablet twice daily with breakfast and supper starting tomorrow for 5 days. The first dose was given to you intravenously in the emergency room. You will need your Lasix medication tomorrow morning for the first time as well. Initial dose was given in the emergency room. He would need to return to medical care if you develop increasing shortness of breath over the next 3 to 5 days. Otherwise you should plan on following up with your doctor in the clinic in 5 to 6 days time. Sepsis Event Note (ED) - Evaluation Sepsis Screening Result: No Definite Risk - Focused Exam Vital Signs: Vital Signs Temp Pulse Resp BP Pulse Ox 09/01/20 12:17 36.4 C 72 16 165/90 H 95 - My Orders Last 24 Hours: My Active Orders 09/01/20 12:34 Chest 1V Frontal [CR] Stat - Assessment/Plan Last 24 Hours: My Active Orders 09/01/20 12:34 Chest 1V Frontal [CR] Stat
[2020-09-01] MEDS ORDERED: Ondansetron 4 MG Tab.DIS PO ONE (13:07)
[2020-09-01] MEDS ORDERED: Ondansetron 4 MG/2 ML SDV IVPUSH ONE (13:30)
[2020-09-01] MEDS ORDERED: Dexamethasone 10 MG/ML SDV IVPUSH ONE (15:46)
[2020-09-01] MEDS ORDERED: Furosemide 40 MG Tab PO ONE (15:46)
--- NOTE | 2020-10-05 15:27 | CR ---
PROCEDURE INFORMATION: Exam: XR Chest, 1 View Exam date and time: 09/01/2020 12:33 PM Age: 84 years old Clinical indication: Patient HX: Mild cough dyspnea; Additional info: Prior report in images TECHNIQUE: Imaging protocol: XR of the chest Views: 1 view. COMPARISON: CR Chest 1V Frontal 08/18/2020 1:41 PM FINDINGS: Lungs: The lungs are hyperinflated, consistent with underlying small airways disease. Atelectatic changes noted within the lung bases without focal pneumonia. Pleural space: Unremarkable. No pleural effusion. No pneumothorax. Heart/Mediastinum: The heart demonstrates mild diffuse enlargement. Bones/joints: Unremarkable. IMPRESSION: 1. The lungs are hyperinflated, consistent with underlying small airways disease. 2. Atelectatic changes noted within the lung bases without focal pneumonia. COMMENTS: Examination performed on 09/01/2020 and presented for final interpretation today. Thank you for allowing us to participate in the care of your patient. Dictated and Authenticated by: Gerard Schumacher DO 10/05/2020 4:25 PM Central Time ([place] & [place]) [facility]ENTERBibiana
== END 2020-09-01 16:25 | disposition home or self-care (01) ==
LOC: JD.ED 12:08
DX: U07.1 COVID-19 (principal); I11.0 Hypertensive heart disease with heart failure; I50.9 Heart failure, unspecified; K21.9 Gastro-esophageal reflux disease without esophagitis; E03.9 Hypothyroidism, unspecified; R79.89 Other specified abnormal findings of blood chemistry; R79.82 Elevated C-reactive protein (CRP); R79.1 Abnormal coagulation profile; R94.31 Abnormal electrocardiogram [ECG] [EKG]; Z79.899 Other long term (current) drug therapy; Z90.49 Acquired absence of other specified parts of digestive tract; Z90.710 Acquired absence of both cervix and uterus; Z98.51 Tubal ligation status
CPT/HCPCS: 36415; 71045; 81001; 82728; 83615; 83735; 83880; 84484; 85025; 85379; 85610; 85730; 86140; 93005; 96374; 96375; 99285; A9270; J1100; J2405; U0002; 93010; 99284

== ENCOUNTER 2022-01-25 07:56 | Inpatient (IN) | payer MEDICARE, OTHER ==
[2022-01-25] MEDS ORDERED: Furosemide 40 MG/4 ML VIAL IVPUSH ONE (08:14)
[2022-01-25 08:49] LABS: CORONAVIRUS COVID-19 NAA NEGATIVE (NEGATIVE)
[2022-01-25] MEDS ORDERED: Acetaminophen 325 MG Tab PO ONE (09:35)
[2022-01-25] MEDS ORDERED: Acetaminophen/HYDROcodone 325-5 MG Tab PO PRN (16:32)
[2022-01-25 18:02] LABS: HEMOGLOBIN A1C 6.3 %
[2022-01-25] MEDS ORDERED: FLU Vacc QS2021(65UP)/MF59C/PF 60 MCG/0.5 ML Syringe IM ONE (18:15)
[2022-01-25] MEDS: Albuterol/Ipratropium 3.0-0.5 MG/3 ML Neb Soln NEB PRN (18:45)
[2022-01-25] MEDS: cefTRIAXone 2 GM in Sodium Chloride 0.9% 100 ML IV SCH (19:53)
[2022-01-25] MEDS: Enoxaparin 30 MG/0.3 ML Syringe SUBCUT SCH (19:58)
[2022-01-25] MEDS: Azithromycin 500 MG in Sodium Chloride 0.9% 250 ML IV SCH (21:07)
[2022-01-25] MEDS: Aspirin 81 MG Tab.Chew PO SCH (21:11)
[2022-01-25] MEDS: Nystatin Topical Powder 15 GM Bottle TOP SCH (21:11)
[2022-01-25] MEDS: Sodium Chloride 0.9% 10 ML Syringe FLUSH SCH (21:12)
[2022-01-25] MEDS: Latanoprost 0.005% Ophth Soln 2.5 ML Bottle EYEBOTH SCH (21:12)
[2022-01-25] MEDS: guaiFENesin/Dextromethorphan 100-10 MG/5 ML Soln 5 ML Cup PO PRN (21:13)
[2022-01-26] MEDS: Levothyroxine 125 MCG Tab PO SCH (06:42)
[2022-01-26] MEDS: Pantoprazole 40 MG Tab.CR PO SCH (06:42)
[2022-01-26] MEDS: Montelukast 10 MG Tab PO SCH (08:17)
[2022-01-26] MEDS: Enoxaparin 30 MG/0.3 ML Syringe SUBCUT SCH (08:17)
[2022-01-26] MEDS: Multivitamin Tab PO SCH (08:17)
[2022-01-26] MEDS: Furosemide 40 MG/4 ML VIAL IVPUSH SCH (08:17)
[2022-01-26] MEDS: Nystatin Topical Powder 15 GM Bottle TOP SCH ×3 (08:18→20:20)
[2022-01-26] MEDS: Sodium Chloride 0.9% 10 ML Syringe FLUSH SCH ×2 (08:19→20:21)
[2022-01-26] MEDS ORDERED: Non-Formulary Medication 1 Each (Omeprazole 20 MG Cap.Cr) PO SCH (09:00)
[2022-01-26] MEDS ORDERED: Pantoprazole 40 MG Vial IV SCH (09:00)
[2022-01-26] MEDS: cefTRIAXone 2 GM in Sodium Chloride 0.9% 100 ML IV SCH (17:10)
[2022-01-26] MEDS: Azithromycin 500 MG in Sodium Chloride 0.9% 250 ML IV SCH (20:19)
[2022-01-26] MEDS: Losartan 100 MG Tab PO SCH (20:20)
[2022-01-26] MEDS: Aspirin 81 MG Tab.Chew PO SCH (20:20)
[2022-01-26] MEDS: Latanoprost 0.005% Ophth Soln 2.5 ML Bottle EYEBOTH SCH (20:21)
[2022-01-26] MEDS: guaiFENesin/Dextromethorphan 100-10 MG/5 ML Soln 5 ML Cup PO PRN (20:22)
[2022-01-26] MEDS: Albuterol/Ipratropium 3.0-0.5 MG/3 ML Neb Soln NEB PRN (21:04)
[2022-01-27] MEDS: Pantoprazole 40 MG Tab.CR PO SCH (05:56)
[2022-01-27] MEDS: Levothyroxine 125 MCG Tab PO SCH (05:56)
[2022-01-27] MEDS ORDERED: Potassium Bicarbonate/Cit Ac 20 MEQ Effervescent Tab PO ONE ×2 (07:01→10:16)
[2022-01-27] MEDS: amLODIPine 10 MG Tab PO SCH (09:43)
[2022-01-27] MEDS: Multivitamin Tab PO SCH (09:43)
[2022-01-27] MEDS: Montelukast 10 MG Tab PO SCH (09:43)
[2022-01-27] MEDS: Furosemide 40 MG/4 ML VIAL IVPUSH SCH (09:44)
[2022-01-27] MEDS: Nystatin Topical Powder 15 GM Bottle TOP SCH ×3 (09:44→20:53)
[2022-01-27] MEDS: Enoxaparin 40 MG/0.4 ML Syringe SUBCUT SCH (09:44)
[2022-01-27] MEDS: Sodium Chloride 0.9% 10 ML Syringe FLUSH SCH ×2 (09:45→20:55)
[2022-01-27] MEDS: guaiFENesin/Dextromethorphan 100-10 MG/5 ML Soln 5 ML Cup PO PRN ×2 (13:54→21:44)
[2022-01-27] MEDS: cefTRIAXone 2 GM in Sodium Chloride 0.9% 100 ML IV SCH (17:19)
[2022-01-27] MEDS: Albuterol/Ipratropium 3.0-0.5 MG/3 ML Neb Soln NEB PRN (20:12)
[2022-01-27] MEDS: Azithromycin 500 MG in Sodium Chloride 0.9% 250 ML IV SCH (20:52)
[2022-01-27] MEDS: Latanoprost 0.005% Ophth Soln 2.5 ML Bottle EYEBOTH SCH (20:53)
[2022-01-27] MEDS: Losartan 100 MG Tab PO SCH (20:54)
[2022-01-27] MEDS: Aspirin 81 MG Tab.Chew PO SCH (20:54)
[2022-01-28] MEDS ORDERED: Magnesium Hydroxide 400 MG/5 ML Susp 30 ML Cup PO ONE (06:03)
[2022-01-28] MEDS: Pantoprazole 40 MG Tab.CR PO SCH (06:50)
[2022-01-28] MEDS: Levothyroxine 125 MCG Tab PO SCH (06:50)
[2022-01-28] MEDS: Furosemide 40 MG/4 ML VIAL IVPUSH SCH (09:21)
[2022-01-28] MEDS: Enoxaparin 40 MG/0.4 ML Syringe SUBCUT SCH (09:24)
[2022-01-28] MEDS: amLODIPine 10 MG Tab PO SCH (09:25)
[2022-01-28] MEDS: Montelukast 10 MG Tab PO SCH (09:25)
[2022-01-28] MEDS: Multivitamin Tab PO SCH (09:25)
[2022-01-28] MEDS: Nystatin Topical Powder 15 GM Bottle TOP SCH (09:25)
[2022-01-28] MEDS: Sodium Chloride 0.9% 10 ML Syringe FLUSH SCH (09:26)
[2022-01-28] MEDS: guaiFENesin/Dextromethorphan 100-10 MG/5 ML Soln 5 ML Cup PO PRN (09:27)
[2022-01-28] MEDS ORDERED: Potassium Chloride 20 MEQ Tab.ER PO ONE (11:45)
== END 2022-01-28 14:48 | disposition home health service (06) | DRG 291 ==
LOC: JD.ED 07:56 → JD.MS 14:46
PROVIDERS: ADMIT Pediatrics; ATTEND Pediatrics
DX: I50.9 Heart failure, unspecified (principal); R53.1 Weakness; H40.9 Unspecified glaucoma; I11.0 Hypertensive heart disease with heart failure; I50.43 Acute on chronic combined systolic (congestive) and diastolic (congestive) heart failure; J21.9 Acute bronchiolitis, unspecified; K59.09 Other constipation; K21.9 Gastro-esophageal reflux disease without esophagitis; Z20.822 Contact with and (suspected) exposure to COVID-19; R91.8 Other nonspecific abnormal finding of lung field; I27.20 Pulmonary hypertension, unspecified; E03.9 Hypothyroidism, unspecified; M54.9 Dorsalgia, unspecified; G89.29 Other chronic pain; M81.0 Age-related osteoporosis without current pathological fracture; Z96.659 Presence of unspecified artificial knee joint; E87.6 Hypokalemia; I45.81 Long QT syndrome; M85.80 Other specified disorders of bone density and structure, unspecified site; Z79.899 Other long term (current) drug therapy; Z87.442 Personal history of urinary calculi; Z90.710 Acquired absence of both cervix and uterus; Z79.890 Hormone replacement therapy; Z90.49 Acquired absence of other specified parts of digestive tract
CPT/HCPCS: 0240U; 36415; 36600; 71045; 71250; 80053; 82803; 82947; 83036; 83516; 83735; 83880; 84443; 84484; 85025; 85379; 85610; 85652; 85730; 86225; 86235; 86738; 87040; 90694; 93005; 93306; 94640; 94667; 94668; 94760; 94761; 94762; 96374; 97161; 99285; 93010; A9270-GY; G0008; J0456; J0696; J1650; J1940; J7050; J7620-GY

== ENCOUNTER 2023-02-01 10:08 | Emergency (ER) | payer MEDICARE, OTHER ==
[2023-02-01] MEDS ORDERED: Sodium Chloride 0.9% 10 ML Syringe FLUSH PRN (10:40)
[2023-02-01] MEDS ORDERED: cefTRIAXone 1 GM in Sodium Chloride 0.9% 100 ML IV ONE (10:40)
== END 2023-02-01 13:55 | disposition home or self-care (01) ==
LOC: JD.ED 10:08
DX: L03.115 Cellulitis of right lower limb (principal); R60.0 Localized edema; I11.0 Hypertensive heart disease with heart failure; I50.9 Heart failure, unspecified; K21.9 Gastro-esophageal reflux disease without esophagitis; E03.9 Hypothyroidism, unspecified; Z79.899 Other long term (current) drug therapy; Z79.82 Long term (current) use of aspirin
CPT/HCPCS: 36415; 73630; 80053; 83605; 85007; 85027; 85610; 86140; 87040; 87070; 87075; 87205; 96365; 99283; J0696; J3490; 87077; 87186

== ENCOUNTER 2023-03-05 09:49 | Inpatient (IN) | payer MEDICARE, OTHER ==
[2023-03-05] MEDS ORDERED: Sodium Chloride 0.9% 10 ML Syringe FLUSH PRN (10:31)
[2023-03-05] MEDS ORDERED: Temazepam 7.5 MG Cap PO PRN (14:19)
[2023-03-05] MEDS: Heparin Sodium 5,000 Units/ML Vial SUBCUT SCH ×2 (15:35→23:40)
[2023-03-05] MEDS ORDERED: Ondansetron 4 MG/2 ML SDV IVPUSH PRN (16:45)
[2023-03-05] MEDS ORDERED: traMADol 50 MG Tab PO PRN (16:58)
[2023-03-05] MEDS: oxyCODONE 5 MG Tab PO PRN (19:49)
[2023-03-05] MEDS ORDERED: Non-Formulary Medication 1 Each (Bimatoprost 2.5 ML Bottle) TOP SCH (21:00)
[2023-03-05] MEDS ORDERED: TRAVOPROST OP SCH (21:00)
[2023-03-05] MEDS: Docusate Sodium 100 MG Cap PO SCH (21:04)
[2023-03-05] MEDS: Losartan 100 MG Tab PO SCH (21:04)
[2023-03-05] MEDS: Montelukast 10 MG Tab PO SCH (21:04)
[2023-03-05] MEDS: Gabapentin 300 MG Cap PO SCH (21:05)
[2023-03-06] MEDS: Levothyroxine 75 MCG Tab PO SCH (06:06)
[2023-03-06] MEDS: Pantoprazole 40 MG Tab.CR PO SCH (06:06)
[2023-03-06] MEDS: Heparin Sodium 5,000 Units/ML Vial SUBCUT SCH ×3 (06:11→23:09)
[2023-03-06] MEDS: Docusate Sodium 100 MG Cap PO SCH ×2 (08:25→20:35)
[2023-03-06] MEDS: Furosemide 20 MG Tab PO SCH (08:25)
[2023-03-06] MEDS: oxyCODONE 5 MG Tab PO PRN ×2 (08:25→16:22)
[2023-03-06] MEDS: Gabapentin 300 MG Cap PO SCH ×3 (08:26→20:36)
[2023-03-06] MEDS: Cholecalciferol (Vitamin D3) 25 MCG Tab PO SCH (08:26)
[2023-03-06] MEDS: Acetaminophen 325 MG Tab PO PRN (16:21)
[2023-03-06] MEDS: Montelukast 10 MG Tab PO SCH (20:35)
[2023-03-06] MEDS: Losartan 100 MG Tab PO SCH (20:35)
[2023-03-07] MEDS: Heparin Sodium 5,000 Units/ML Vial SUBCUT SCH ×3 (06:16→23:59)
[2023-03-07] MEDS: Pantoprazole 40 MG Tab.CR PO SCH (06:16)
[2023-03-07] MEDS: Levothyroxine 75 MCG Tab PO SCH (06:16)
[2023-03-07] MEDS: Furosemide 20 MG Tab PO SCH (09:53)
[2023-03-07] MEDS: Acetaminophen 325 MG Tab PO PRN (09:53)
[2023-03-07] MEDS: Gabapentin 300 MG Cap PO SCH ×4 (09:53→20:03)
[2023-03-07] MEDS: Cholecalciferol (Vitamin D3) 25 MCG Tab PO SCH (09:55)
[2023-03-07] MEDS: Docusate Sodium 100 MG Cap PO SCH ×3 (09:55→20:03)
[2023-03-07] MEDS ORDERED: Bisacodyl 10 MG Supp RECTAL ONE (13:15)
[2023-03-07] MEDS: oxyCODONE 5 MG Tab PO PRN (19:53)
[2023-03-07] MEDS: Montelukast 10 MG Tab PO SCH ×2 (19:53→20:03)
[2023-03-07] MEDS: Losartan 100 MG Tab PO SCH ×2 (19:54→20:03)
[2023-03-08] MEDS: Pantoprazole 40 MG Tab.CR PO SCH (05:14)
[2023-03-08] MEDS: Levothyroxine 75 MCG Tab PO SCH (05:14)
[2023-03-08] MEDS: oxyCODONE 5 MG Tab PO PRN (05:15)
[2023-03-08] MEDS: Heparin Sodium 5,000 Units/ML Vial SUBCUT SCH ×3 (06:13→23:13)
[2023-03-08] MEDS: Acetaminophen 325 MG Tab PO PRN ×2 (08:39→17:08)
[2023-03-08] MEDS: Docusate Sodium 100 MG Cap PO SCH ×2 (08:40→20:13)
[2023-03-08] MEDS: Furosemide 20 MG Tab PO SCH (08:41)
[2023-03-08] MEDS: Cholecalciferol (Vitamin D3) 25 MCG Tab PO SCH (08:41)
[2023-03-08] MEDS: Gabapentin 300 MG Cap PO SCH ×3 (08:41→20:13)
[2023-03-08] MEDS: Lubiprostone 24 MCG Cap PO SCH (17:09)
[2023-03-08] MEDS: Montelukast 10 MG Tab PO SCH (20:13)
[2023-03-08] MEDS: Losartan 100 MG Tab PO SCH (20:13)
[2023-03-09] MEDS: Lubiprostone 24 MCG Cap PO SCH ×2 (06:31→16:04)
[2023-03-09] MEDS: Pantoprazole 40 MG Tab.CR PO SCH (06:31)
[2023-03-09] MEDS: Heparin Sodium 5,000 Units/ML Vial SUBCUT SCH ×2 (06:31→16:04)
[2023-03-09] MEDS: Levothyroxine 75 MCG Tab PO SCH (06:31)
[2023-03-09] MEDS: Cholecalciferol (Vitamin D3) 25 MCG Tab PO SCH (08:49)
[2023-03-09] MEDS: Docusate Sodium 100 MG Cap PO SCH ×2 (08:49→20:59)
[2023-03-09] MEDS: Acetaminophen 325 MG Tab PO PRN ×3 (08:49→20:56)
[2023-03-09] MEDS: Furosemide 20 MG Tab PO SCH (08:50)
[2023-03-09] MEDS: Gabapentin 300 MG Cap PO SCH ×3 (08:51→20:59)
[2023-03-09] MEDS: Montelukast 10 MG Tab PO SCH (20:58)
[2023-03-09] MEDS: Losartan 100 MG Tab PO SCH (20:58)
[2023-03-10] MEDS: Heparin Sodium 5,000 Units/ML Vial SUBCUT SCH ×2 (00:40→06:32)
[2023-03-10] MEDS: Pantoprazole 40 MG Tab.CR PO SCH (06:32)
[2023-03-10] MEDS: Levothyroxine 75 MCG Tab PO SCH (06:32)
[2023-03-10] MEDS: Lubiprostone 24 MCG Cap PO SCH (06:32)
[2023-03-10] MEDS: Docusate Sodium 100 MG Cap PO SCH (09:22)
[2023-03-10] MEDS: Furosemide 20 MG Tab PO SCH (09:23)
[2023-03-10] MEDS: Cholecalciferol (Vitamin D3) 25 MCG Tab PO SCH (09:23)
[2023-03-10] MEDS: Gabapentin 300 MG Cap PO SCH (09:23)
[2023-03-10] MEDS: Acetaminophen 325 MG Tab PO PRN (10:47)
== END 2023-03-10 14:13 | DRG 184 ==
LOC: JD.ED 09:49 → JD.MS 14:19
PROVIDERS: ADMIT Internal Medicine; ATTEND Internal Medicine
DX: S22.43XA Multiple fractures of ribs, bilateral, initial encounter for closed fracture (principal); R53.1 Weakness; S22.089A Unspecified fracture of T11-T12 vertebra, initial encounter for closed fracture; I10 Essential (primary) hypertension; R62.7 Adult failure to thrive; K59.03 Drug induced constipation; T40.2X5A Adverse effect of other opioids, initial encounter; Z20.822 Contact with and (suspected) exposure to COVID-19; I11.0 Hypertensive heart disease with heart failure; I50.9 Heart failure, unspecified; K21.9 Gastro-esophageal reflux disease without esophagitis; E03.9 Hypothyroidism, unspecified; M81.0 Age-related osteoporosis without current pathological fracture; M54.9 Dorsalgia, unspecified; G89.29 Other chronic pain; Z68.38 Body mass index [BMI] 38.0-38.9, adult; Z79.890 Hormone replacement therapy; Z79.82 Long term (current) use of aspirin; Z79.899 Other long term (current) drug therapy; Z90.49 Acquired absence of other specified parts of digestive tract; Z90.710 Acquired absence of both cervix and uterus; W01.0XXA Fall on same level from slipping, tripping and stumbling without subsequent striking against object, initial encounter; Y92.009 Unspecified place in unspecified non-institutional (private) residence as the place of occurrence of the external cause
CPT/HCPCS: 36415; 71250; 80053; 81001; 84484; 85025; 86140; 93005; 99285; J3490; 80048; 93010; 97110-GP; 97162-GP; 97166-GO; 97530-GO; 97530-GP; 99222; 99231; 99232; 99239; A9270-GY; J1644; J2405; U0002

== ENCOUNTER 2023-09-06 23:55 | Inpatient (IN) | payer MEDICARE, OTHER ==
[2023-09-07] MEDS ORDERED: Dextrose 5%-0.9% NaCl 1,000 ML IV SCH ×2 (00:30→02:00)
[2023-09-07] MEDS ORDERED: Acetaminophen 325 MG Tab PO ONE (00:41)
[2023-09-07 00:54] LABS: BASE EXCESS ARTERIAL 13.7 (-2-2.0); BICARBONATE,ARTERIAL 41.9 meq/L (22.0-26.0)
[2023-09-07 00:55] LABS: PCO2 ARTERIAL 70.4 mmHg (35.0-45.0)
[2023-09-07 01:06] LABS: MEAN CORPUSCULAR HEMOGLOBIN 28.8 pg (28.0-32.0); MEAN CORPUSCULAR HGB CONC 31.1 g/dl (32.0-36.0); MEAN CORPUSCULAR VOLUME 92.6 fl (83.0-99.0); PLATELET COUNT,PLT 256 K/mm3 (150-400); RED BLOOD CELL COUNT 4.86 M/mm3 (4.10-5.30); WHITE BLOOD CELL COUNT,WBC 9.99 K/mm3 (3.9-11.3)
[2023-09-07 01:25] LABS: INR 1.23
[2023-09-07 01:26] LABS: PTT,PARTIAL THROMBOPLSTIN TIME 28.6 SECONDS (21.7-31.4)
[2023-09-07 01:31] LABS: BAND PERCENT MAN 0 % (0-10); BASOPHILS PERCENT MAN 1 (0.1-1.2); EOSINOPHILS PERCENT MAN 2 % (0.7-5.8); HYPOCHROMASIA 1+ SLIGHT; LYMPHOCYTES % ATYPICAL MANUAL 0 %; LYMPHOCYTES PERCENT MAN 17 % (20-40); MONOCYTES PERCENT MAN 7 % (2-10); PLATELET COUNT ESTIMATE ADEQUATE
[2023-09-07] MEDS ORDERED: Piperacillin/Tazobactam 4.5 GM in Sodium Chloride 0.9% 100 ML IV ONE (01:31)
[2023-09-07 01:42] LABS: A/G RATIO 0.7 (1-2); ALBUMIN 2.8 g/dl (3.4-5.0); BILIRUBIN TOTAL 0.7 mg/dL (0.2-1.0); C-REACTIVE PROTEIN 2.7 mg/dL (<1.0); CALCIUM 9.3 mg/dL (8.5-10.1); CREATININE 0.7 mg/dL (0.55-1.02); EST CRCL DRUG DOSING (CG) 48.89 mL/min; MAGNESIUM 1.4 mg/dL (1.8-2.4); PROTEIN TOTAL,TP 6.8 g/dl (6.4-8.2)
[2023-09-07] MEDS ORDERED: Magnesium Sulfate/Water 4 GM in Premix Bag 1 BAG IV ONE (01:56)
[2023-09-07] MEDS ORDERED: Furosemide 40 MG/4 ML VIAL IVPUSH ONE ×2 (01:57→08:00)
[2023-09-07] MEDS: Potassium Chloride 10 MEQ in Premix Bag 1 BAG IV SCH ×3 (03:33→05:49)
[2023-09-07 04:49] LABS: APPEARANCE,URINE CLEAR (Clear); BILIRUBIN,URINE NEGATIVE (Negative); COLOR,URINE YELLOW (Yellow); GLUCOSE,URINE NEGATIVE (Negative); KETONES,URINE NEGATIVE (Negative); LEUKOCYTE ESTERASE,URINE NEGATIVE (Negative); NITRITE,URINE NEGATIVE (Negative); OCCULT BLOOD,URINE TRACE-INTACT (Negative); PROTEIN,URINE NEGATIVE (Negative)
[2023-09-07 04:57] LABS: BACTERIA,URINE FEW /hpf (FEW); MUCUS,URINE NOT SEEN /hpf (FEW); RBC,URINE 0-5 /hpf (0-5); WBC,URINE 0-5 /hpf (0-5)
[2023-09-07] MEDS ORDERED: REMDESIVIR 200 MG in Sodium Chloride 0.9% 250 ML IV ONE ×5 (09:00→10:00)
[2023-09-07] MEDS ORDERED: Acetaminophen 325 MG Tab PO PRN (09:02)
[2023-09-07] MEDS ORDERED: Ondansetron 4 MG/2 ML SDV IV PRN (09:04)
[2023-09-07 11:13] LABS: ANION GAP 3.1 (5-15); BILIRUBIN DIRECT 0.2 mg/dl (0.0-0.2); BUN/CREATININE RATIO 22.9 (14-18); CREATININE 0.7 mg/dL (0.55-1.02); EST CRCL DRUG DOSING (CG) 48.89 mL/min; MAGNESIUM 2.3 mg/dL (1.8-2.4); POTASSIUM,K 3.1 mEq/L (3.5-5.1)
[2023-09-07] MEDS ORDERED: Sodium Chloride 0.9% 100 ML IV SCH (12:15)
[2023-09-07] MEDS: Piperacillin/Tazobactam 4.5 GM in Sodium Chloride 0.9% 100 ML IV SCH ×2 (13:24→20:34)
[2023-09-07] MEDS: Enoxaparin 40 MG/0.4 ML Syringe SUBCUT SCH (13:24)
[2023-09-07] MEDS: Dexamethasone 10 MG/ML SDV IVPUSH SCH (13:25)
[2023-09-07] MEDS: Potassium Chloride 20 MEQ Tab.ER PO SCH ×2 (13:25→20:33)
[2023-09-07] MEDS: Gabapentin 300 MG Cap PO SCH ×2 (15:48→20:33)
[2023-09-07] MEDS: Iopamidol 755 Mg/ML 100 ML Bottle IVPUSH ONE ×2 (15:48→16:44)
[2023-09-07] MEDS ORDERED: Iopamidol 755 Mg/ML 100 ML Bottle IVPUSH ONE (16:44)
[2023-09-07] MEDS: Melatonin 3 MG Tab PO SCH (20:33)
[2023-09-07] MEDS: Latanoprost 0.005% Ophth Soln 2.5 ML Bottle EYEBOTH SCH (20:34)
[2023-09-07] MEDS ORDERED: Latanoprost 0.005% Ophth Soln 2.5 ML Bottle EYEBOTH SCH (21:00)
[2023-09-08] MEDS: Pantoprazole 40 MG Tab.CR PO SCH (05:14)
[2023-09-08] MEDS: Piperacillin/Tazobactam 4.5 GM in Sodium Chloride 0.9% 100 ML IV SCH ×3 (05:14→20:52)
[2023-09-08 05:55] LABS: BASOPHILS PERCENT AUTO 0.5 % (0.0-1.0); HEMATOCRIT 45.1 % (37.0-47.0); HEMOGLOBIN 14.3 gm/dl (12.0-16.0); IMMATURE GRAN ABSOLUTE AUTO 0.04 K/mm3 (0.00-0.05); IMMATURE GRAN PERCENT AUTO 0.9 % (0.0-0.4); LYMPHOCYTES ABSOLUTE AUTO 0.9 K/mm3 (1.0-4.8); MEAN CORPUSCULAR HEMOGLOBIN 28.9 pg (28.0-32.0); MEAN CORPUSCULAR HGB CONC 31.7 g/dl (32.0-36.0); MEAN CORPUSCULAR VOLUME 91.1 fl (83.0-99.0); MEAN PLATELET VOLUME 9.2 fl (9.4-12.3); MONOCYTES ABSOLUTE AUTO 0.3 K/mm3 (0.0-0.8); MONOCYTES PERCENT AUTO 6.1 % (0.0-8.0); NEUTROPHILS ABSOLUTE AUTO 3.1 K/mm3 (1.8-7.7); NEUTROPHILS PERCENT AUTO 72.5 % (41.0-71.0); PLATELET COUNT,PLT 242 K/mm3 (150-400); RED BLOOD CELL COUNT 4.95 M/mm3 (4.10-5.30); WHITE BLOOD CELL COUNT,WBC 4.29 K/mm3 (3.9-11.3)
[2023-09-08 06:19] LABS: A/G RATIO 0.7 (1-2); ALBUMIN 2.7 g/dl (3.4-5.0); ANION GAP 5.6 (5-15); BILIRUBIN TOTAL 0.5 mg/dL (0.2-1.0); BUN/CREATININE RATIO 22.9 (14-18); CALCIUM 8.6 mg/dL (8.5-10.1); CREATININE 0.7 mg/dL (0.55-1.02); EST CRCL DRUG DOSING (CG) 48.89 mL/min; POTASSIUM,K 3.6 mEq/L (3.5-5.1); PROTEIN TOTAL,TP 6.6 g/dl (6.4-8.2)
[2023-09-08 06:49] LABS: BILIRUBIN DIRECT 0.2 mg/dl (0.0-0.2); BILIRUBIN INDIRECT 0.3
[2023-09-08] MEDS: Gabapentin 300 MG Cap PO SCH ×3 (09:08→20:38)
[2023-09-08] MEDS: Levothyroxine 75 MCG Tab PO SCH (09:08)
[2023-09-08] MEDS: Potassium Chloride 20 MEQ Tab.ER PO SCH ×2 (09:08→20:38)
[2023-09-08] MEDS: Ascorbic Acid 500 MG Tab PO SCH (09:08)
[2023-09-08] MEDS: Furosemide 40 MG/4 ML VIAL IVPUSH SCH ×2 (09:08→20:47)
[2023-09-08] MEDS: Dexamethasone 10 MG/ML SDV IVPUSH SCH (09:10)
[2023-09-08] MEDS: REMDESIVIR 100 MG in Sodium Chloride 0.9% 250 ML IV SCH (10:02)
[2023-09-08] MEDS: Enoxaparin 40 MG/0.4 ML Syringe SUBCUT SCH (10:12)
[2023-09-08] MEDS: Melatonin 3 MG Tab PO SCH (20:38)
[2023-09-08] MEDS: Latanoprost 0.005% Ophth Soln 2.5 ML Bottle EYEBOTH SCH (20:52)
[2023-09-09] MEDS: Piperacillin/Tazobactam 4.5 GM in Sodium Chloride 0.9% 100 ML IV SCH ×2 (05:06→14:35)
[2023-09-09] MEDS: Pantoprazole 40 MG Tab.CR PO SCH (05:09)
[2023-09-09] MEDS ORDERED: Sodium Chloride 0.9% 250 ML ONE (08:53)
[2023-09-09] MEDS: Gabapentin 300 MG Cap PO SCH ×3 (09:05→20:02)
[2023-09-09] MEDS: Levothyroxine 75 MCG Tab PO SCH (09:05)
[2023-09-09] MEDS: Enoxaparin 40 MG/0.4 ML Syringe SUBCUT SCH (09:05)
[2023-09-09] MEDS: Ascorbic Acid 500 MG Tab PO SCH (09:05)
[2023-09-09] MEDS: Potassium Chloride 20 MEQ Tab.ER PO SCH ×2 (09:05→20:02)
[2023-09-09] MEDS: Dexamethasone 10 MG/ML SDV IVPUSH SCH (09:06)
[2023-09-09] MEDS: REMDESIVIR 100 MG in Sodium Chloride 0.9% 250 ML IV SCH (09:06)
[2023-09-09] MEDS: Furosemide 20 MG Tab PO SCH ×2 (09:16→20:02)
[2023-09-09] MEDS: Dexamethasone 6 MG TABLET PO SCH (09:22)
[2023-09-09] MEDS: Nystatin Topical Powder 15 GM Bottle TOP PRN ×2 (15:12→18:52)
[2023-09-09] MEDS: Melatonin 3 MG Tab PO SCH (20:02)
[2023-09-09] MEDS: Latanoprost 0.005% Ophth Soln 2.5 ML Bottle EYEBOTH SCH (20:03)
[2023-09-10] MEDS: Pantoprazole 40 MG Tab.CR PO SCH (06:17)
[2023-09-10 07:36] LABS: A/G RATIO 0.8 (1-2); ALBUMIN 2.7 g/dl (3.4-5.0); ANION GAP 4.1 (5-15); BILIRUBIN TOTAL 0.4 mg/dL (0.2-1.0); C-REACTIVE PROTEIN 1.1 mg/dL (<1.0); CALCIUM 8.5 mg/dL (8.5-10.1); CREATININE 0.8 mg/dL (0.55-1.02); EST CRCL DRUG DOSING (CG) 42.78 mL/min; POTASSIUM,K 4.1 mEq/L (3.5-5.1); PROTEIN TOTAL,TP 6.3 g/dl (6.4-8.2)
[2023-09-10] MEDS: Enoxaparin 40 MG/0.4 ML Syringe SUBCUT SCH (09:25)
[2023-09-10] MEDS: Potassium Chloride 20 MEQ Tab.ER PO SCH (09:26)
[2023-09-10] MEDS: Gabapentin 300 MG Cap PO SCH (09:26)
[2023-09-10] MEDS: Levothyroxine 75 MCG Tab PO SCH (09:27)
[2023-09-10] MEDS: Furosemide 20 MG Tab PO SCH (09:27)
[2023-09-10] MEDS: Ascorbic Acid 500 MG Tab PO SCH (09:27)
[2023-09-10] MEDS: Dexamethasone 6 MG TABLET PO SCH (09:27)
[2023-09-10] MEDS: Nystatin Topical Powder 15 GM Bottle TOP PRN (09:28)
[2023-09-10] MEDS: REMDESIVIR 100 MG in Sodium Chloride 0.9% 250 ML IV SCH ×2 (09:28→16:30)
== END 2023-09-10 13:47 | DRG 177 ==
LOC: JD.ED 23:55 → JD.MS 09-07 02:05
PROVIDERS: ADMIT Hospitalist; ATTEND Internal Medicine
PROC: 3E0333Z Introduction of Anti-inflammatory into Peripheral Vein, Percutaneous Approach (ICD-10-PCS; principal; 2023-09-07)
DX: U07.1 COVID-19 (principal); J12.82 Pneumonia due to coronavirus disease 2019; I50.43 Acute on chronic combined systolic (congestive) and diastolic (congestive) heart failure; J96.01 Acute respiratory failure with hypoxia; J96.91 Respiratory failure, unspecified with hypoxia; J96.02 Acute respiratory failure with hypercapnia; E86.0 Dehydration; R78.81 Bacteremia; L03.116 Cellulitis of left lower limb; I11.0 Hypertensive heart disease with heart failure; E87.6 Hypokalemia; E66.9 Obesity, unspecified; J45.909 Unspecified asthma, uncomplicated; E83.42 Hypomagnesemia; R79.89 Other specified abnormal findings of blood chemistry; I25.2 Old myocardial infarction; E03.9 Hypothyroidism, unspecified; Z79.890 Hormone replacement therapy; K21.9 Gastro-esophageal reflux disease without esophagitis; Z90.49 Acquired absence of other specified parts of digestive tract; Z86.16 Personal history of COVID-19; Z90.710 Acquired absence of both cervix and uterus; Z98.51 Tubal ligation status; Z90.89 Acquired absence of other organs; Z96.659 Presence of unspecified artificial knee joint; Z68.39 Body mass index [BMI] 39.0-39.9, adult; Z66 Do not resuscitate; Z99.81 Dependence on supplemental oxygen; Z79.899 Other long term (current) drug therapy
CPT/HCPCS: 36415; 36600; 71045; 80053; 82803; 83605; 83735; 83880; 84484; 85007; 85027; 85610; 85730; 86140; 87040 ×2; 93005; A9270; J2543; J3490; J7042; 71275; 71275-26; 80048; 80076; 81001; 82248; 84145; 85025; 87154; 87641; 93010; 93306; 94760; 94761; 97162-GP; 97530-GP; 99285; J0248; J1100; J1650; J1940; J3475; J3480; J7050; J8540; Q9967